=== PATIENT | male | born 1945 | race Caucasian/White ===

== ENCOUNTER 2021-12-03 11:18 | Day surgery (SDC) | payer MEDICARE, BC ==
[2021-12-03] VITALS (163 sets, daily range): BP systolic 107–143; BP diastolic 58–74; PULSE 47–59; TEMP 97.8; O2SAT 92–100
[~2021-12-03] VITALS: Ht 177.8 cm; Wt 101.0 kg
[~2021-12-03 11:18] MED LIST: ASPIRIN E.C. 8181 MG PO; BETAPACE 80MG80 MG PO; HCTZ 25MG TAB25 MG PO; IMODIUM 2MG CAPS2 MG PO; LOPRESSOR 550 MG/TAB PO; XARELTO20 MG PO; ZOCOR 40MG40 MG PO
[2021-12-03] MEDS ORDERED: FERROUS SU325 MG/TAB PO (12:34)
[2021-12-03] MEDS ORDERED: VITAMIN C500 MG PO (12:35)
[2021-12-03] MEDS ORDERED: FOLIC ACID0.4 MG PO (12:36)
--- NOTE | 2021-12-03 13:08 | NUR ---
See merge for all medication, assessment, intervention, vital sign times. See merge for initial vital signs.
[2021-12-03] MEDS ORDERED: BETAPACE 80MG80 MG PO (13:40)
== END 2021-12-03 17:05 | disposition home or self-care (01) ==
LOC: COL.CAR 11:18
DX: I26.99 Other pulmonary embolism without acute cor pulmonale (principal); I82.403 Acute embolism and thrombosis of unspecified deep veins of lower extremity, bilateral
CPT/HCPCS: C1880; C1894; J1644; J2250; J3010; J7120; Q9967

== ENCOUNTER 2022-02-11 08:28 | Outpatient (CLI) | payer MEDICARE, BC ==
[~2022-02-11] VITALS: Ht 177.8 cm; Wt 103.3 kg
[~2022-02-11 08:28] MED LIST changes: +FERROUS SU325 MG/TAB PO; +FOLIC ACID0.4 MG PO; +VITAMIN C500 MG PO
[2022-02-11 08:46] VITALS: BP 143/79; PULSE 50; TEMP 97.2
[2022-02-11 10:53] VITALS: BP 121/66; PULSE 44
--- NOTE | 2022-02-11 10:54 | NUR ---
See merge for all medication, assessment, intervention, and vital sign times.
[2022-02-11 11:32] VITALS: BP 132/66; PULSE 54
[2022-02-11 11:55] VITALS: BP 127/66; PULSE 49
[2022-02-11 12:00] VITALS: BP 126/67; PULSE 48
[2022-02-11 12:15] VITALS: BP 120/62; PULSE 46
--- NOTE | 2022-02-11 13:00 | NUR ---
Pt is ready for departure. Dr. Faith was in to see pt and discuss procedure and discharge instructions. Pt has eaten lunch, and is now ready to go . I discussed dc instructions with pt; no questions at time of departure. Puncture site to rt side of neck still soft, with clean dry and intact dressing. pt to exit via wheelchair.
== END 2022-02-11 14:25 | disposition home or self-care (01) ==
LOC: COL.CAR 08:28
DX: Z45.2 Encounter for adjustment and management of vascular access device (principal)
CPT/HCPCS: J1644; J2250; J3010; Q9967